=== PATIENT | female | born 1980 | race Caucasian/White ===

== ENCOUNTER 2024-02-29 10:31 | Outpatient (OUT) | payer OTHER, SELFPAY ==
[2024-02-29 11:22] LABS: Estimated Average Glucose 97 mg/dL
[2024-02-29 11:39] LABS: Basophils Percent Auto 0.2 % (0.2-2.0); Eosinophils Absolute Auto 0.2 10^3/uL (0.0-0.7); Eosinophils Percent Auto 2.8 % (0.9-7.0); Hematocrit 41.5 % (36.0-48.0); Hemoglobin 13.6 g/dL (12.0-16.0); Immature Granulocytes Abs Auto 0.01 10^3/uL (0.00-0.03); Immature Granulocytes Pct Auto 0.2 % (0.0-0.5); Lymphocytes Absolute Auto 1.3 10^3/uL (1.2-3.8); Lymphocytes Percent Auto 22.9 % (20.5-60.0); Mean Corpuscular HGB Conc 32.8 g/dL (29.9-35.2); Mean Corpuscular Hemoglobin 28.3 pg (26.7-34.0); Mean Corpuscular Volume 86.5 fL (81.0-99.0); Mean Platelet Volume 11.1 fL (9.5-13.5); Monocytes Absolute Auto 0.4 10^3/uL (0.3-0.8); Monocytes Percent Auto 6.6 % (1.7-12.0); Neutrophils Absolute Auto 3.9 10^3/uL (1.4-6.5); Neutrophils Percent Auto 67.3 % (43.0-75.0); Platelet Count 326 10^3/uL (150-450); Red Cell Distribution Width 13.2 % (11.0-15.0); White Blood Count 5.8 10^3/uL (4.0-11.0)
[2024-02-29 12:00] LABS: Free T4 0.95 ng/dL (0.76-1.46)
[2024-02-29 12:03] LABS: Alanine Aminotransferase 37 U/L (14-59); Albumin Globulin Ratio 1.1; Albumin Level 3.7 g/dL (3.4-5.0); Alkaline Phosphatase 62 U/L (46-116); Anion Gap 11.8; Aspartate Amino Transferase 15 U/L (15-37); BUN Creatinine Ratio 17.4; Bilirubin Total 0.5 mg/dL (0.2-1.0); Calcium 8.9 mg/dL (8.5-10.1); Carbon Dioxide 28.4 mmol/L (21.0-32.0); Chloride 104 mmol/L (98-107); Chol HDL Ratio 2.9; Cholesterol 164 mg/dL (<=200); Estimated GFR (African America >60 (>=60); Estimated GFR (Non-African Ame >60 (>=60); Globulin 3.5 g/dL; Glucose 92 mg/dL (74-106); HDL Cholesterol 57 mg/dL (40-60); LDL Cholesterol Calculated 94.6 mg/dL; Potassium 4.2 mmol/L (3.5-5.1); Sodium 140 mmol/L (136-145); Thyroid Stimulating Hormone 1.156 uIU/mL (0.358-3.740); Total Protein 7.2 g/dL (6.4-8.2); Triglycerides 62 mg/dL (<=150); VLDL CHOLESTEROL 12.4 mg/dL
[2024-02-29 19:31] LABS: Internal Control Within Normal Limits; Occult Blood Positive
== END 2024-02-29 10:32 | disposition home or self-care (01) ==
LOC: LAB 10:36
PROVIDERS: Visit Provider Family Medicine
DX: Z00.00 Encounter for general adult medical examination without abnormal findings (principal)
CPT/HCPCS: 36415; 80053; 80061; 83036; 84439; 84443; 85025; G0328

== ENCOUNTER 2024-03-28 11:03 | Outpatient (OUT) | payer OTHER, SELFPAY ==
--- NOTE | 2024-03-28 11:07 | MM_ITS ---
Patient Name: OSCAR NORTH MR#: [id number] : 1980 Exam Date: 03/28/2024 Ordering Doctor: DR Reynold Pittman . RADIOLOGY REPORT PROCEDURE: MM TOMOSYNTHESIS SCREENING BI COMPARISON: MG MAMM LT UNI W CAD DIG, 02/03/2016. MG STEREO LOC GUIDE BREAST LT, 07/06/2015. MG MAMM JUAN DIAG W CAD DIG, 06/09/2015. INDICATIONS: Screening Calculator Name NCI Breast Cancer Risk Assessment Tool 5 Year Breast Cancer Risk 1.40% Lifetime Breast Cancer Risk 12.50% Personal Breast Cancer No Personal Ovarian Cancer No Treatments None Family Cancers Aunt-paternal with breast cancer at age ~48; Aunt-paternal with breast cancer at age ~38. LOCATION: [facility] BREAST COMPOSITION: The breasts are heterogeneously dense,which may obscure small masses. FINDINGS: DIAGNOSTIC CATEGORY 1--NEGATIVE. RIGHT BREAST: No significant suspicious finding. No significant change has occurred. LEFT BREAST: No significant suspicious finding. No significant change has occurred. RECOMMENDATIONS: ROUTINE MAMMOGRAM AND CLINICAL EVALUATION IN 12 MONTHS. PLEASE NOTE: A NORMAL MAMMOGRAM DOES NOT EXCLUDE THE POSSIBILITY OF BREAST CANCER. A CLINICALLY SUSPICIOUS PALPABLE LUMP SHOULD BE BIOPSIED. Dictated by: Markus Lozada M.D. on 03/28/2024 at 14:16 Approved by: Markus Lozada M.D. on 03/28/2024 at 14:19
== END 2024-03-28 11:04 | disposition home or self-care (01) ==
LOC: MAMMO 11:03
PROVIDERS: PCP Family Medicine; Visit Provider Family Medicine
DX: Z00.00 Encounter for general adult medical examination without abnormal findings (principal); Z80.3 Family history of malignant neoplasm of breast
CPT/HCPCS: 77063; 77067

== ENCOUNTER 2024-03-31 13:00 | Outpatient (OUT) | payer OTHER, SELFPAY ==
--- OUTSIDE RECORDS SUMMARY | 2024-04-01 07:25 | XMS_ITS | CCD ---
Author Organization [facility] Care Team Providers Care Tripper Name Role Phone Lane Meza Primary Care Provider LANE MEZA Primary Care Unavailable PAYAM BAR Attending Unavailable Reynold Pittman Primary Care Physician Pee ACUNA Attending Unavailable Reynold Pittman Referring Unavailable Allergies Allergy Classification Reported Allergen(s) Allergy Type Date of Onset Reaction(s) Facility (12 sources) Cephalexin; Translations: [Cephalexin] Drug Allergy 3 Anaphylaxis, Weal (disorder) [place], [place] (11 sources) Penicillins Propensity to adverse reactions to drug 3 Anaphylaxis, Hives [place], [place] (2 sources) Penicillin; Translations: [penicillin] Drug Allergy Weal (disorder) [facility] (1 source) Cephalexin; Translations: [Keflex] Drug Allergy [facility] Repository Medications Current Medications Medication Drug Class(es) Dates Sig (Normalized) Sig (Original) benzonatate 100 mg oral capsule (1 source) Non-narcotic Antitussive Start: 06-28-2020 End: 07-05-2020 take 1 capsule by mouth three times daily as needed for cough benzonatate (TESSALON PERLES) 100 MG capsule Indications: Suspected COVID-19 virus infection Take 1 capsule by mouth 3 times daily as needed for Cough 21 capsule 0 06/28/2020 07/05/2020 Active calcium chloride 0.0014 meq/ml / potassium chloride 0.004 meq/ml / sodium chloride 0.103 meq/ml / sodium lactate 0.028 meq/ml injectable solution (2 sources) Start: 03-22-2020 End: 03-22-2020 lactated ringers infusion citalopram 20 mg oral tablet (5 sources) Serotonin Reuptake Inhibitor Start: 03-01-2020 take 1 tablet by mouth once daily citalopram (CELEXA) 20 MG tablet Indications: Anxiety Take 1 tablet by mouth daily 30 tablet 3 03/01/2020 Active famotidine 20 mg oral tablet (9 sources) Histamine-2 Receptor Antagonist Start: 03-21-2024 take 1 tablet by mouth once daily Pepcid 20 mg Tab 20 mg = 1 tab(s), Oral, Daily, Refills(s) 0 Start Date: 03/21/24 Status: Ordered Famotidine ([facility] ID PO) Take by mouth 0 Active lisinopril 10 mg oral tablet (11 sources) Angiotensin Converting Enzyme Inhibitor Start: 06-14-2020 take 1 tablet by mouth once daily lisinopril (PRINIVIL;ZESTRIL) 10 MG tablet Indications: Essential hypertension Take 1 tablet by mouth daily 30 tablet 3 06/14/2020 Active Start: 03-01-2020 take 1 tablet by lisa th once daily lisinopril (PRINIVIL;ZESTRIL) 10 MG tablet Indications: Essential hypertension Take 1 tablet by mouth daily 30 tablet 2 03/01/2020 Active 3 ml sodium chloride 9 mg/ml injection (2 sources) Start: 03-22-2020 sodium chloride flush 0.9 % injection 10 mL sucralfate 100 mg/ml oral suspension (6 sources) Aluminum Complex Start: 03-08-2020 take 1 tablet by mouth four times daily sucralfate (CARAFATE) 1 GM/10ML suspension Indications: Gastroesophageal reflux disease, esophagitis presence not specified Take 10 mLs by mouth 4 times daily May substitute 1 gm Carafate tabs if pharmacy staff instructs patient how to make slurry at home. 420 mL 1 03/08/2020 Active 24 hr venlafaxine 37.5 mg extended release oral capsule (4 sources) Serotonin and Norepinephrine Reuptake Inhibitor Start: 03-29-2020 take 1 capsule by mouth once daily venlafaxine (EFFEXOR XR) 37.5 MG extended release capsule Indications: Anxiety Take 1 capsule by mouth daily 30 capsule 3 03/29/2020 Active Completed/Discontinued Medications Medication Drug Class(es) Dates Sig (Normalized) Sig (Original) barium sulfate 98 % suspension 340 mL (1 source) Start: 04-13-2020 End: 04-13-2020 barium sulfate 98 % suspension 340 mL Problems Active Problems Problem Classification Problem Date Documented Da te Episodic/Chronic Abdominal pain (2 sources) Right upper quadrant pain; Translations: [Unspecified abdominal pain] Onset: 3 Episodic Anxiety disorders (1 source) Anxiety 03-05-2024 Chronic Esophageal disorders (10 sources) Gastroesophageal reflux disease; Translations: [Gastroesophageal reflux disease without esophagitis] Onset: 0 03-22-2020 Chronic Essential hypertension (2 sources) Essential hypertension; Translations: [Hypertensive disorder] 03-05-2024 Chronic Gastrointestinal hemorrhage (2 sources) Hemorrhage of rectum and anus; Translations: [Hemorrhage of anus and rectum] Onset: 4 Episodic Immunizations and screening for infectious disease (1 source) Contact with and (suspected) exposure to other viral communicable diseases; Translations: [Suspected COVID-19 virus infection] Episodic Mood disorders (1 source) Depressive disorder 03-05-2024 Chronic Nausea and vomiting (2 sources) Nausea and vomiting; Translations: [Nausea] Onset: 3 Episodic Nonmalignant breast conditions (2 sources) Breast lump; Translations: [Breast lump] Episodic Other gastrointestinal disorders (1 source) Abnormal feces; Translations: [Other fecal abnormalities] Onset: 4 Episodic Other gastrointestinal disorders (1 source) Occult blood in stools 03-21-2024 Episodic Other nutritional; endocrine; and metabolic disorders (1 source) Body mass index 30+ - obesity 03-21-2024 Chronic Other nutritional; endocrine; and metabolic disorders (1 source) Obesity caused by energy imbalance 03-05-2024 Chronic Sexually transmitted infections (not HIV or hepatitis) (11 sources) Human papillomavirus deoxyribonucleic acid test positive, high risk on cervical specimen; Translations: [Cervical high risk human papillomavirus (HPV) DNA test positive] Onset: 3 04-03-2013 Substance-related disorders (1 source) Smoker 03-21-2024 Chronic Comment on above: Added secondary to d ocumentation in Social History. Unclassified (2 sources) Patient encounter status; Translations: [Well woman exam with routine gynecological exam] Past or Other Problems Problem Classification Problem Date Documented Da te Episodic/Chronic Other screening for suspected conditions (not mental disorders or infectious disease) (11 sources) Abnormal cytology findings; Translations: [ASCUS (atypical squamous cells of undetermined significance) on Pap smear] Onset: 04-03-2013 04-03-2013 Episodic Results Test Name Value Interpretation Reference Range Facil ity Ambulatory Visit Summaryon 0 03-21-2024 Ambulatory Visit Summary Ambulatory Visit Summary [facility] :1980 Visit Date:03/21/2024 Ambulatory Visit Instructions Your Diagnosis Positive fecal occult blood test Your Care Team Attending Physician - Pee ACUNA MD Primary Care Physician - Zain STUBBS, Reynold Referring Physician - Reynold Pittman MD This Is Your Medications List famotidine (Pepcid 20 mg Tab) Procedures Performed Cone biopsy, EGD - esophagogastroduodenos copy, Lumpectomy of left breast, Tonsillectomy. Discharge Vitals Heart Rate (Peripheral) 87 Respiratory Rate 16 Blood Pressure 131/91 Height 152.4 cm Height 60 in Weight 90.7 kg Weight 199.54 lb BMI 39.05 Medications What How Much When Instructions Unchanged famotidine (Pepcid 20 mg Tab) 1 Tablets By Mouth Every day Allergies Keflex (Hives) penicillin (Hives) Problems Ongoing - Any problem that you are currently receiving treatment for. Anxiety BMI 39.0-39.9,adult Depression Hypertension Obesity due to excess calories Positive fecal occult blood test Smoker Patient Survey You may receive a survey via text or e-mail asking about your office visit. Please share your experience with us by completing your survey. We appreciate your feedback and thank you for choosing us for your care. Normal [facility] Basic Metabolic Profon 10-24 Anion gap [Moles/Vol] 9 mmol/L Normal - [place] Comment on above: Performed By: #### B MP, LIP, HCG, LIVP, CDP #### [facility] [address] [place] [address] [employer]ocket [employer] Operator: Raymond Reyna MD BUN/CRE Ratio 19 Normal - [facility] Comment on above: Performed By: #### B MP, LIP, HCG, LIVP, CDP #### [facility] [address] [place] [address] [employer] Operator: Raymond Reyna MD Calcium [Mass/Vol] 9.1 mg/dL Normal 8.6-10.4 [place] Comment on above: Performed By: #### B MP, LIP, HCG, LIVP, CDP #### [facility] [address] [place], [place] [id number] [employer] Operator: Raymond Reyna MD Chloride [Moles/Vol] 102 mmol/L Normal 98-107 [facility] Comment on above: Performed By: #### B MP, LIP, HCG, LIVP, CDP #### [facility] [address] [place], [place] [id number] [employer] Operator: Raymond Reyna MD CO2 [Moles/Vol] 24 mmol/L Normal 20-31 [facility] Comment on above: Performed By: #### B MP, LIP, HCG, LIVP, CDP #### [facility] [address] [place] [address] [employer] Operator: Raymond Reyna MD Creatinine [Mass/Vol] 0.93 mg/dL High 0.50-0.90 [place] Comment on above: Performed By: #### B MP, LIP, HCG, LIVP, CDP #### [facility] [address] [place] [id number] [employer] Operator: Raymond Reyna MD GFR/1.73 sq M.predicted among non-blacks MDRD (S/P/Bld) [Vol rate/Area] mL/min/{1.73_m2} Normal >60 [place] Comment on above: Result Comment: These results are not intended for use in patients <18 years of age. eGFR results are calculated without a race factor using the 2020 CKD-EPI equation. Careful clinical correlation is recommended, particularly when comparing to results calculated using previous equations. The CKD-EPI equation is less accurate in patients with extremes of muscle mass, extra-renal metabolism of creatine, excessive creatine ingestion, or following therapy that affects renal tubular secretion. Performed By: #### B MP, LIP, HCG, LIVP, CDP #### [facility] [address] [place], [place] [id number] [employer] Operator: Raymond Reyna MD Glucose [Mass/Vol] 106 mg/dL High 70-99 [place] Comment on above: Performed By: #### B MP, LIP, HCG, LIVP, CDP #### [facility] [address] [place], [place] [id number] [employer] Operator: Raymond Reyna MD Potassium [Moles/Vol] 3.9 mmol/L Normal 3.7-5.3 [place] Comment on above: Performed By: #### B MP, LIP, HCG, LIVP, CDP #### [facility] [address] [place] [address] [employer] Operator: Raymond Reyna MD Sodium [Moles/Vol] 135 mmol/L Normal 135-144 [place] Comment on above: Performed By: #### B MP, LIP, HCG, LIVP, CDP #### [facility] [address] [place] [address] [employer] Operator: Raymond Reyna MD Urea nitrogen [Mass/Vol] 18 mg/dL Normal 6-20 [place] Comment on above: Performed By: #### B MP, LIP, HCG, LIVP, CDP #### [facility] [address] [place] [address] [employer] Operator: Raymond Reyna MD CBC with Diffon 10-24-2022 Abs. Basophil 0.10 k/uL Normal 0.0-0.2 [facility] Comment on above: Performed By: #### B MP, LIP, HCG, LIVP, CDP #### [facility] [address] [place] [address] [employer] Operator: Raymond Reyna MD Abs.Neutrophil (Seg) 6.90 k/uL Normal 2.5-7.0 [facility] Comment on above: Performed By: #### B MP, LIP, HCG, LIVP, CDP #### [facility] [address] [place] [address] [employer] Operator: Raymond Reyna MD Auto Diff Performed YES Normal [place] Comment on above: Performed By: #### B MP, LIP, HCG, LIVP, CDP #### [facility] [address] [place], [place] [id number] [employer] Operator: Raymond Reyna MD Basophils/100 WBC (Bld) 1 % Normal 0-2 [place] Comment on above: Performed By: #### B MP, LIP, HCG, LIVP, CDP #### [facility] [address] [place] [address] [employer] Operator: Raymond Reyna MD Eosinophils (Bld) [#/Vol] 0.30 10*3/uL Normal 0.0-0.4 [place] Comment on above: Performed By: #### B MP, LIP, HCG, LIVP, CDP #### [facility] [address] [place] [address] [employer] Operator: Raymond Reyna MD Eosinophils/100 WBC (Bld) 3 % Normal 0-5 [place] Comment on above: Performed By: #### B MP, LIP, HCG, LIVP, CDP #### [facility] [address] [place] [address] [employer] Operator: Raymond Reyna MD Erythrocyte distribution width (RBC) [Ratio] 13.0 % Normal 12.1-15.2 [place] Comment on above: Performed By: #### B MP, LIP, HCG, LIVP, CDP #### [facility] [address] [place] [address] [employer] Operator: Raymond Reyna MD Hematocrit (Bld) [Volume fraction] 39.6 % Normal 36-46 [place] Comment on above: Performed By: #### B MP, LIP, HCG, LIVP, CDP #### [facility] [address] [place] [address] [employer] Operator: Raymond Reyna MD Hemoglobin (Bld) [Mass/Vol] 13.4 g/dL Normal 12.0-16.0 [place] Comment on above: Performed By: #### B MP, LIP, HCG, LIVP, CDP #### [facility] [address] [place] [address] [employer] Operator: Raymond Reyna MD Lymphocytes (Bld) [#/Vol] 2.00 10*3/uL Normal 1.0-4.8 [place] Comment on above: Performed By: #### B MP, LIP, HCG, LIVP, CDP #### [facility] [address] [place] [address] [employer] Operator: Raymond Reyna MD Lymphocytes/100 WBC (Bld) 21 % Normal 15-40 [place] Comment on above: Performed By: #### B MP, LIP, HCG, LIVP, CDP #### [facility] [address] [place] [id number] [employer] Operator: Raymond Reyna MD MCH (RBC) [Entitic mass] 28.9 pg Normal 26-34 [place] Comment on above: Performed By: #### B MP, LIP, HCG, LIVP, CDP #### [facility] [address] [place] [id number] [employer] Operator: Raymond Reyna MD MCHC (RBC) [Mass/Vol] 33.8 g/dL Normal 31-37 [place] Comment on above: Performed By: #### B MP, LIP, HCG, LIVP, CDP #### [facility] [address] [place] [address] [employer] Operator: Raymond Reyna MD MCV (RBC) [Entitic vol] 85.5 fL Normal 80-100 [place] Comment on above: Performed By: #### B MP, LIP, HCG, LIVP, CDP #### [facility] [address] [place], [place] [id number] [employer] Operator: Raymond Reyna MD Monocytes (Bld) [#/Vol] 0.50 10*3/uL Normal 0.0-1.0 [place] Comment on above: Performed By: #### B MP, LIP, HCG, LIVP, CDP #### [facility] [address] [place] [address] (408) [employer] Operator: Raymond Reyna MD Monocytes/100 WBC (Bld) 5 % Normal 4-8 [place] Comment on above: Performed By: #### B MP, LIP, HCG, LIVP, CDP #### [facility] [address] [place] [address] [employer] Operator: Raymond Reyna MD Neutrophil (Seg) 70 % Normal 47-75 [facility] Comment on above: Performed By: #### B MP, LIP, HCG, LIVP, CDP #### [facility] [address] [place] [address] [employer] Operator: Raymond Reyna MD Platelets (Bld) [#/Vol] 319 10*3/uL Normal 140-450 [place] Comment on above: Performed By: #### B MP, LIP, HCG, LIVP, CDP #### [facility] [address] [place] [address] (389) [employer] Operator: Raymond Reyna MD RBC (Bld) [#/Vol] 4.63 10*6/uL Normal 4.0-5.2 [place] Comment on above: Performed By: #### B MP, LIP, HCG, LIVP, CDP #### [facility] [address] [place] [address] (968) [employer] Operator: Raymond Reyna MD WBC (Bld) [#/Vol] 9.8 10*3/uL Normal 3.5-11.0 [place] Comment on above: Performed By: #### B MP, LIP, HCG, LIVP, CDP #### [facility] [address] [place], [place] [id number] [employer] Operator: Raymond Reyna MD HCG Screen, Bloodon 10-25-19 23 HCG Screen, Blood Negative Normal [facility] Comment on above: Result Comment: Spec imens with hCG levels near the threshold of the test (25 mIU/mL) may give a negative or indeterminate result. In such cases, another test should be performed with a new specimen in 48-72 hours. If early is suspected clinically in this setting, correlation with quantitative serum b-hCG level is suggested. [facility] has confirmed the use of plasma for this test. This has not been cleared or approved by the U.S. Food and Drug Administration. The FDA has determined that such clearance is not necessary. Performed By: #### B MP, LIP, HCG, LIVP, CDP #### [facility] [address] [place], [place] [id number] [employer] Operator: Raymond Reyna MD Lipaseon 10-24-2022 Lipase [Catalytic activity/Vol] 36 U/L Normal 13-60 [place] Comment on above: Performed By: #### B MP, LIP, HCG, LIVP, CDP #### [facility] [address] [place] [address] [employer] Operator: Raymond Reyna MD Liver Profileon 0 Albumin [Mass/Vol] 4.2 g/dL Normal 3.5-5.2 [place] Comment on above: Performed By: #### B MP, LIP, HCG, LIVP, CDP #### [facility] [address] [place] [address] [employer] Operator: Raymond Reyna MD Alkaline Phos 77 U/L Normal 35-104 [facility] Comment on above: Performed By: #### B MP, LIP, HCG, LIVP, CDP #### [facility] [address] [place] [address] [employer] Operator: Raymond Reyna MD ALT [Catalytic activity/Vol] 18 U/L Normal 5-33 [place] Comment on above: Performed By: #### B MP, LIP, HCG, LIVP, CDP #### [facility] [address] [place] [address] [employer] Operator: Raymond Reyna MD AST [Catalytic activity/Vol] 16 U/L Normal <32 [place] Comment on above: Performed By: #### B MP, LIP, HCG, LIVP, CDP #### [facility] [address] [place] [address] [employer] Operator: Raymond Reyna MD Bilirubin [Mass/Vol] 0.3 mg/dL Normal 0.3-1.2 [facility] Comment on above: Performed By: #### B MP, LIP, HCG, LIVP, CDP #### [facility] [address] [place] [address] [employer] Operator: Raymond Reyna MD Bilirubin, Indirect Can not be calculated Normal 0.0-1 .0 [place] Comment on above: Performed By: #### B MP, LIP, HCG, LIVP, CDP #### [facility] [address] [place] [address] [employer] Operator: Raymond Reyna MD Bilirubin.indirect [Mass/Vol] mg/dL Normal <0.3 [place] Comment on above: Performed By: #### B MP, LIP, HCG, LIVP, CDP #### [facility] [address] [place] [address] [employer] Operator: Raymond Reyna MD Protein [Mass/Vol] 7.2 g/dL Normal 6.4-8.3 [place] Comment on above: Performed By: #### B MP, LIP, HCG, LIVP, CDP #### [facility] [address] [place] [address] [employer] Operator: Raymond Reyna MD Urinalysis, Routineon 2022 Bilirubin, SemiQt,Ur Negative Normal NEG [facility] Comment on above: Performed By: #### U A #### [facility] [address] [facility] [place] [id number] [employer] Operator: Raymond Reyna MD Blood, Urine Negative Normal NEG [facility] Comment on above: Performed By: #### U A #### [facility] [address] [facility] [place] [id number] [employer] Operator: Raymond Reyna MD Clarity (U) Clear Normal CLEAR [place] Comment on above: Performed By: #### U A #### [facility] [address] [facility] [place] [id number] [employer] Operator: Raymond Reyna MD Color (U) Yellow Normal YEL [place] Comment on above: Performed By: #### U A #### [facility] [address] [facility] [place] [id number] [employer] Operator: Raymond Reyna MD Comment Normal [place] Comment on above: Performed By: #### U A #### [facility] [address] [facility] [place] [id number] [employer] Operator: Raymond Reyna MD Glucose Ql (U) Negative Normal NEG [facility] Comment on above: Performed By: #### U A #### [facility] [address] [facility] [place] [id number] [employer] Operator: Raymond Reyna MD Ketones Ql (U) Negative Normal NEG [facility] Comment on above: Performed By: #### U A #### [facility] [address] [facility] [place] [id number] [employer] Operator: Raymond Reyna MD Leukocyte esterase Test strip Ql (U) Negative Normal NEG [place] Comment on above: Performed By: #### U A #### [facility] [address] [place], [place] [id number] [employer] Operator: Raymond Reyna MD Nitrite,Ur Negative Normal NEG [place] Comment on above: Performed By: #### U A #### [facility] [address] [place], [place] [id number] [employer] Operator: Raymond Reyna MD PH,Ur 5.0 Normal 5.0-8.0 [place] Comment on above: Performed By: #### U A #### [facility] [address] [place], [place] [id number] [employer] Operator: Raymond Reyna MD Protein Ql (U) Negative Normal NEG [facility] Comment on above: Performed By: #### U A #### [facility] [address] [place], [place] [id number] Rocket Assembly Operator: Raymond Reyna MD Spec. [place],Ur 1.010 Normal 1.005-1.030 [facility] Comment on above: Performed By: #### U A #### [facility] [address] [place], [place] [id number] Rocket Assembly Operator: Raymond Reyna MD Urobilinogen,Ur Normal Normal NORM [facility] Comment on above: Performed By: #### U A #### [facility] [address] [place], [place] [id number] Rocket Assembly Operator: Raymond Reyna MD COVID-19on 04-13-2020 SARS-CoV-2 [place], [place] SARS-CoV-2, PCR [place], [place] SARS-CoV-2, Rapid Not Detected Not Detected [place], [place] Comment on above: Rapid NAAT: The specimen is NEGATIVE for SARS-CoV-2, the novel coronavirus associated with COVID-19. The ID NOW COVID-19 assay is designed to detect the virus that causes COVID-19 in patients with signs and symptoms of infection who are suspected of COVID-19. An individual without symptoms of COVID-19 and who is not shedding SARS-CoV-2 virus would expect to have a negative (not detected) result in this assay. Negative results should be treated as presumptive and, if inconsistent with clinical signs and symptoms or necessary for patient management, should be tested with an alternative molecular assay. Negative results do not preclude SARS-CoV-2 infection and should not be used as the sole basis for patient management decisions. Fact sheet for Healthcare Providers: https://www.fda.gov/media/851445/download Fact sheet for Patients: https://www.fda.gov/media/314893/download Methodology: Isothermal Nucleic Acid Amplification Source .THROAT [place], [place] FL UGIon 04-13-2020 Gastroesophageal reflux. [place], [place] EXAMINATION: [place] UGI HISTORY: Chronic reflux and vomiting. Evaluate for delayed gastric emptying. COMPARISON: Gallbladder ultrasound earlier today was normal. FLUOROSCOPY TIME: Fluoro time measures 1.5 minutes and 12 spot images and 6 overhead films were obtained. TECHNIQUE: Air contrast upper GI. FINDINGS: No delay in gastric emptying. Gastroesophageal reflux was identified into the upper third of the thoracic esophagus. No hiatal hernia. No obstruction to swallowing. Stomach, duodenum, and proximal small bowel loops are normal. [place], [place] Imer, pn Incoming Radiant Results From [facility] - 04/13/2020 2:13 PM EDT EXAMINATION: [place] UGI HISTORY: Chronic reflux and vomiting. Evaluate for delayed gastric emptying. COMPARISON: Gallbladder ultrasound earlier today was normal. FLUOROSCOPY TIME: Fluoro time measures 1.5 minutes and 12 spot images and 6 overhead films were obtained. TECHNIQUE: Air contrast upper GI. FINDINGS: No delay in gastric emptying. Gastroesophageal reflux was identified into the upper third of the thoracic esophagus. No hiatal hernia. No obstruction to swallowing. Stomach, duodenum, and proximal small bowel loops are normal. IMPRESSION: Gastroesophageal reflux. [place], [place] US GALLBLADDER RUQon 020 Normal ultrasound of the right upper quadrant [place], [place] Ultrasound of the right upper quadrant. HISTORY: Reason for exam:->Postprandial abdominal pain The pancreas appears normal. The liver is normal in size. No focal masses or biliary dilatation is noted. Color-flow is noted in the portal and hepatic veins. The gallbladder appears normal. No stones or sludge is identified. Common bile duct is normal measuring 3 mm. Right kidney measures 9.9 x 4 x 4.6 cm. Color-flow is noted. No solid renal cortical masses or hydronephrosis is noted. No fluid is noted in the right upper quadrant. [place], [place] I[place], Mhpn Incoming Radiant Results From [facility] - 04/13/2020 11:55 AM EDT Ultrasound of the right upper quadrant. HISTORY: Reason for exam:->Postprandial abdominal pain The pancreas appears normal. The liver is normal in size. No focal masses or biliary dilatation is noted. Color-flow is noted in the portal and hepatic veins. The gallbladder appears normal. No stones or sludge is identified. Common bile duct is normal measuring 3 mm. Right kidney measures 9.9 x 4 x 4.6 cm. Color-flow is noted. No solid renal cortical masses or hydronephrosis is noted. No fluid is noted in the right upper quadrant. IMPRESSION: Normal ultrasound of the right upper quadrant [place], [place] COVID-19on 03-22-2020 SARS-CoV-2 [place] SARS-CoV-2, PCR [place] SARS-CoV-2, Rapid Not Detected Not Detected [place], [place] Comment on above: Rapid NAAT: The specimen is NEGATIVE for SARS-CoV-2, the novel coronavirus associated with COVID-19. Negative results should be treated as presumptive and, if inconsistent with clinical signs and symptoms or necessary for patient management, should be tested with an alternative molecular assay. Negative results do not preclude SARS-CoV-2 infection and should not be used as the sole basis for patient management decisions. Fact sheet for Healthcare Providers: https://www.fda.gov/media/748849/download Fact sheet for Patients: https://www.fda.gov/media/485186/download Methodology: Isothermal Nucleic Acid Amplification Source .THROAT [place], [place] Urine pregnancyon 03-22-2020 Beta HCG ( test) Ql (U) Negative NEGATIVE [place], [place] Otheron 03-04-2020 BI-RADS 2 - Benign, no evidence of malignancy. Normal interval followup is recommended in 12 months. OVERALL ASSESSMENT- BENIGN A letter of notification will be sent to the patient regarding the results. The findings were discussed with the patient. She can return to screening mammography. [place] EXAM: US BREAST LIMITED LEFT, ESTRELLA DIGITAL DIAGNOSTIC W OR WO CAD BILATERAL HISTORY: N63.0. Palpable abnormality improving medial right breast. COMPARISON: Prior mammogram left breast 02/03/2016, 07/06/2015. TECHNIQUE: Focused left breast ultrasound, bilateral digital diagnostic mammogram with CAD. FINDINGS: Triangular skin marker was placed over the medial right breast at the site of a resolving abnormality which showed only fatty tissue on the mammogram and no area of concern on ultrasound other than a likely small area of fat measuring under 1 cm. Otherwise the breasts show heterogeneously dense fibroglandular tissue which could obscure small masses. No change. [place], [place] Imer, Mhpn Incoming Radiant Results From [facility] - 03/04/2020 4:10 PM EDT EXAM: US BREAST LIMITED LEFT, ESTRELLA DIGITAL DIAGNOSTIC W OR WO CAD BILATERAL HISTORY: N63.0. Palpable abnormality improving medial right breast. COMPARISON: Prior mammogram left breast 02/03/2016, 07/06/2015. TECHNIQUE: Focused left breast ultrasound, bilateral digital diagnostic mammogram with CAD. FINDINGS: Triangular skin marker was placed over the medial right breast at the site of a resolving abnormality which showed only fatty tissue on the mammogram and no area of concern on ultrasound other than a likely small area of fat measuring under 1 cm. Otherwise the breasts show heterogeneously dense fibroglandular tissue which could obscure small masses. No change. IMPRESSION: BI-RADS 2 - Benign, no evidence of malignancy. Normal interval followup is recommended in 12 months. OVERALL ASSESSMENT- BENIGN A letter of notification will be sent to the patient regarding the results. The findings were discussed with the patient. She can return to screening mammography. [place] Basic Metabolic Panelon 02-17 Anion gap [Moles/Vol] 13 mmol/L 9 - 17 mmol/L [place] Bun/Cre Ratio 14 [place] Calcium [Mass/Vol] 9.9 mg/dL 8.6 - 10. 4 mg/dL [place] Chloride [Moles/Vol] 103 mmol/L 98 - 107 mmol/L [place] CO2 [Moles/Vol] 24 mmol/L 20 - 31 mmol/L [place] Creatinine [Mass/Vol] 1.18 mg/dL High 0.5 - 0.9 mg/dL [place] GFR >60 >60 mL/min [place], [place] GFR Non- 51 mL/min Low >60 [place] GFR/1.73 sq M predicted among non-blacks MDRD (S/P/Bld) [Vol rate/Area] [place], [place] Comment on above: Average GFR for 30-3 9 years old: 107 mL/min/1.73sq m Chronic Kidney Disease: <60 mL/min/1.73sq m Kidney failure: <15 mL/min/1.73sq m eGFR calculated using average adult body mass. Additional eGFR calculator available at: http://www.EZbuildingEHS/multiple_crcl_2012.htm GFR/1.73 sq M predicted among non-blacks MDRD (S/P/Bld) [Vol rate/Area] NOT REPORTED [place], [place] Glucose [Mass/Vol] 98 mg/dL 70 - 99 mg/dL [place] Interpretation and review of laboratory results Abnormal [place] Potassium [Moles/Vol] 4.1 mmol/L 3.7 - 5.3 mmol/L [place] Sodium [Moles/Vol] 140 mmol/L 135 - 144 mmol/L [place], [place] Urea nitrogen [Mass/Vol] 17 mg/dL 6 - 20 mg/dL [place] CBC Auto Differentialon 02-17 Basophils (Bld) [#/Vol] 0.00 10*3/uL [place] Basophils/100 WBC (Bld) 0 % 0 - 2 % [place] Differential Type YES [place] Eosinophils (Bld) [#/Vol] 0.20 10*3/uL [place] Eosinophils/100 WBC (Bld) 2 % 0 - 5 % [place] Erythrocyte distribution width (RBC) [Ratio] 12.9 % 12.1 - 15.2 % [place] Hematocrit (Bld) [Volume fraction] 40.0 % 36 - 46 % [place] Hemoglobin (Bld) [Mass/Vol] 13.8 g/dL 12 - 16 g/dL [place] Lymphocytes (Bld) [#/Vol] 2.20 10*3/uL [place] Lymphocytes/100 WBC (Bld) 27 % 15 - 40 % [place] MCH (RBC) [Entitic mass] 30.2 pg 26 - 34 pg [place] MCHC (RBC) [Mass/Vol] 34.6 g/dL 31 - 37 g/dL [place] MCV (RBC) [Entitic vol] 87.2 fL 80 - 100 fL [place] Monocytes (Bld) [#/Vol] 0.60 10*3/uL [place] Monocytes/100 WBC (Bld) 8 % 4 - 8 % [place] Platelet mean volume (Bld) [Entitic vol] NOT REPORTED 6 - 12 fL [place], [place] Platelets (Bld) [#/Vol] NOT REPORTED [place] Platelets (Bld) [#/Vol] 322 10*3/uL [place] RBC (Bld) [#/Vol] 4.59 10*6/uL 4 - 5.2 m/uL [place] RBC morphology finding Nom (Bld) NOT REPORTED [place] Segmented neutrophils/100 WBC (Bld) 63 % 47 - 75 % [place] Segs Absolute 5.10 [place] WBC (Bld) [#/Vol] 8.1 10*3/uL [place] WBC (Bld) [#/Vol] NOT REPORTED per 100 WBC [place], [place] WBC Morphology NOT REPORTED [place], [place] Otheron 03-01-2020 Immature granulocytes (Bld) [#/Vol] NOT REPORTED 0 % [place] TSHon 03-01-2020 TSH Qn 1.19 m[IU]/L [place], [place] Vital Signs Date Time Vital Sign Value Performing Clinician Wendi kelley 03-21-2024 08:49-0400 Blood Pressure Location [facility] 03-21-2024 08:49-0400 Diastolic blood pressure 91 mm[Hg] [facility] 03-21-2024 08:49-0400 Heart rate 87 /min [facility] 03-21-2024 08:49-0400 Respiratory rate 16 /min [facility] 03-21-2024 08:49-0400 Systolic blood pressure 131 mm[Hg] [facility] 03-22-2020 10:58-0400 BP Diastolic 85 mm[Hg] [facility] [place] 03-22-2020 10:58-0400 BP Systolic 139 mm[Hg] [facility] [place] , [place] 03-22-2020 10:58-0400 Pulse (Heart Rate) 78 /min [facility] [place] 03-22-2020 10:58-0400 Pulse Oximetry 100 % [facility] [place] 03-22-2020 10:58-0400 Respiratory Rate 18 /min [facility] [place] 03-22-2020 10:26-0400 Body Temperature 97.7 [degF] [facility] [place] 03-22-2020 07:33-0400 BMI (Body Mass Index) 37.11 kg/m2 Cuategreg Mallory [facility], [place] 03-22-2020 07:33-0400 Body weight 86.18 kg [facility] [place] 03-22-2020 07:33-0400 Height 152.4 cm [facility] [place] , [place] Encounters Encounter Date Encounter Type Care Provider Facility Start: 03-21-2024 End: 03-21-2024 ambulatory Pee ACUNA Facility:DAV Reeder Start: 03-21-2024 End: 03-21-2024 Patient encounter procedure Pee ACUNA [facility] [place] Start: 03-18-2024 ambulatory Pee ACUNA Facility:Jennifer Reeder Start: 03-03-2024 ambulatory Pee ACUNA Facility:Jennifer Daniel Start: 10-24-2022 End: 10-24-2022 Emergency department patient visit [facility] Start: 10-25-2020 End: 10-25-2020 Subsequent hospital visit by physician [facility] Ryan Pat Screening Schedule [facility] PRE ADMIT Comment on above: Arrived Start: 06-28-2020 End: 06-28-2020 Subsequent hospital visit by physician Lane delilah [facility] Laboratory Comment on above: Suspected COVID-19 v irus infection Start: 05-05-2020 End: 05-05-2020 Subsequent hospital visit by physician [facility] Laboratory Comment on above: Well woman exam with routine gynecological exam; Screening for HPV (human papillomavirus) Start: 04-13-2020 End: 04-15-2020 Subsequent hospital visit by physician Hernesto Radiologist [facility] Radiology Comment on above: Non-intractable vomi ting with nausea, unspecified vomiting type RUQ abdominal pain Start: 04-13-2020 End: 04-13-2020 Subsequent hospital visit by physician [facility] Ryan Pat Screening Schedule [facility] PRE ADMIT Comment on above: Arrived Start: 03-22-2020 End: 03-22-2020 Subsequent hospital visit by physician Cuate Mallory Work Phone: [facility] Start: 03-22-2020 End: 03-22-2020 Subsequent hospital visit by physician [facility] Ryan Pat Screening Schedule [facility] PRE ADMIT Comment on above: Arrived Start: 03-04-2020 End: 03-06-2020 Subsequent hospital visit by physician [facility] Radiologist [facility] Mammography Comment on above: Breast lump Start: 03-01-2020 End: 03-01-2020 Subsequent hospital visit by physician Lane Meza [facility] Laboratory Comment on above: Gastroesophageal ref lux disease without esophagitis; Essential hypertension Procedures Date Procedure Procedure Detail Performing Clinician Start: 04-13-2020 Radex gi tract upper w/wo delayed images w/o kub Cuate P Kuivinen Work Phone: Start: 04-13-2020 COVID-19 Meng Archer Work Phone: Start: 04-13-2020 Us abdominal real time w/image limited Cuate P Kuivinen Work Phone: Start: 03-22-2020 Urine test visual color cmprsn meths Cuate P Kuivinen Work Phone: Start: 03-22-2020 COVID-19 Meng Archer Work Phone: Start: 03-04-2020 Us breast uni real time with image limited Lane Meza Work Phone: Start: 03-04-2020 Diagnostic mammography computer-aided detcj bi Lane Meza Work Phone: Start: 03-01-2020 Assay of thyroid stimulating hormone tsh Lane Meza Work Phone: Start: 03-01-2020 Basic metabolic panel calcium total Kimber Meza Work Phone: Start: 03-01-2020 Blood count complete auto&auto difrntl wbc Lane Meza Work Phone: Cone biopsy Pee ACUNA Esophagogastroduodenoscopy M laly ACUNA Lumpectomy of left breast Mi shahramsusanne ARMAND Tonsillectomy Pee ACUNA Plan of Treatment Date Care Activity Detail Author Start: 05-05-2025 Screening for malign ant neoplasm of cervix Cervical cancer screen [facility], [place] Start: 05-11-2021 End: 05-11-2021 Office Visit 05/11/2021 Office Visit Obstetrics and Gynecology Tania Mcdaniels APRN - CNMely [address] [place] [address] [facility] WORSHIP DIRECTOR Start: 03-01-2021 Creatinine measurement Creatinine mo [place]itoring [place], [place] Start: 03-01-2021 DTaP/Tdap/Td vaccine (1 - Tdap) DTaP/Tdap/Td vaccine (1 - Tdap) [place] Comment on above: Postponed from 02/11 (Patient Refused) Start: 03-01-2021 HIV screening HIV screen [place], [place] Comment on above: Postponed from 02/11 (Patient Refused) Start: 03-01-2021 Potassium monitoring Potassium monit oring [place], [place] Start: 06-28-2020 End: 06-28-2020 Office Visit [facility] Start: 05-05-2020 End: 05-05-2020 Office Visit 05/05/2020 Office Visit Obstetrics and Gynecology Tania Mcdaniels APRN - CNMely [address] [place] [address] [facility] WORSHIP DIRECTOR Start: 04-20-2020 Influenza vaccination Flu vaccine (# 1) [place], [place] Start: 03-29-2020 End: 03-29-2020 Office Visit 03/29/2020 Office [address] Medicine Lane Meza MD [address] [place] [phone] [facility] Start: 03-22-2020 Varicella vaccine (1 of 2 - 2-dose childhood series) Varicella vaccine (1 of 2 - 2-dose childhood series) [place] Comment on above: Postponed from 02/11 (Not Indicated) Start: 03-08-2020 End: 03-08-2020 Office Visit 03/08/2020 Office Visit General Surgery Cuate Mallory MD [address] [place] [address] [facility] [employer] [place] Start: 03-04-2020 End: 03-04-2020 Appointment 03/04/2020 Appointment Radiology [facility] Ultrasound Start: 11-07-2016 Screening for malign ant neoplasm of cervix Cervical cancer screen [place], [place] Start: 1983 Varicella vaccine (1 of 2 - 2-dose childhood series) Varicella vaccine (1 of 2 - 2-dose childhood series) [place], [place] Start: 1982 Hepatitis C screening Hepatitis C sc reen [facility] Phone: End: 10-25-2020 COVID-19 COVID-19 Lab Routine Once for 1 Occurrences starting 10/25/2020 until 10/25/2020 [facility] Phone: Comment on above: Once for 1 Occurrenc es starting 10/25/2020 until 10/25/2020 COVID-19 COVID-19 Lab Rou fredi 10/25/2020 10:35 AM [facility] Phone: End: 06-28-2020 COVID-19 Ambulatory COVID-19 Ambulatory Lab Routine Suspected COVID-19 virus infection 1 Occurrences starting 06/28/2020 until 06/28/2020 [place] Comment on above: 1 Occurrences starti ng 06/28/2020 until 06/28/2020 COVID-19 Ambulatory COVID-19 Amb ulatory Lab Routine Suspected COVID-19 virus infection 06/28/2020 11:14 AM EST [place], [place] End: 05-05-2020 Cytopathology procedure, preparation of smear, genital source PAP SMEAR Lab Routine Well woman exam with routine gynecological exam Screening for HPV (human papillomavirus) 1 Occurrences starting 05/05/2020 until 05/05/2020 [place] Comment on above: 1 Occurrences starti ng 05/05/2020 until 05/05/2020 H. PYLORI DETECTION [place] Comment on above: Release Upon Orderin g for 1 Occurrences starting 03/22/2020 Oxygen therapy Initiate Oxygen Therapy Protocol Respiratory Care Routine Daily until discontinued starting 03/22/2020 [place] Comment on above: Daily until disconti nued starting 03/22/2020 Surgical Pathology Surgical Path ology Lab Routine Release Upon Ordering for 1 Occurrences starting 03/22/2020 [place] Comment on above: Release Upon Orderin g for 1 Occurrences starting 03/22/2020 Payers Date Payer Category Payer Unknown [id number] 2024 Private Health Insurance [id number] 2016 Private Health Insurance AEGINA LOONA [id number] 2016-Present [phone] [address] [place] [address] [id number] 2016 Private Health Insurance AEGINA LOONA [id number] 2016-Present [phone] [address] [place] [address] [id number] 2014 Unknown [id number] 1982 Unknown [id number] 1982 Unknown [id number] Social History Date Type Detail Facility Start: 03-01-2020 End: 10-25-2020 Tobacco smoking status NHIS Former smoker [facility] [place] Start: 03-01-1995 End: 03-01-2017 History of tobacco use Current smoker [facility] [place] Start: 03-01-1995 End: 03-01-2017 History of tobacco use [facility] Start: 03-01-2020 End: 10-25-2020 Cigarettes smoked current (pack per day) - [facility]orted [facility] Start: 03-01-2020 End: 10-25-2020 Tobacco use and exposure Never used [facility] Start: 03-01-2020 End: 10-25-2020 Alcohol intake Current drinker of alcohol (finding) [place] Start: 04-16-2013 Alcohol Comment once a month Jagruti Vyas [place] Sex Assigned At Not on file [place] Exposure to SARS-CoV -2 (event) Not sure [place] Sex Assigned At Female [facility] Functional Status Date Assessment Result Facility 03-21-2024 Functional Status N/A [facility] [place] Clinical Note 03-21-2024 Note Date & Type Note Facility 03-21-2024 Note General Surgery Offi ce/Clinic Note Chief Complaint consultation for positive occult stool HPI Staff 44 year old female presents on consultation from Dr. Pittman for positive occult stool. Patient reports bright red rectal bleeding with nearly every bowel movement for many years. Reports blood in toiler water and on toilet tissue. Reports intermittent rectal pain with bowel movements. She is unable to determine if pain in internal or external. Denies abdominal pain, nausea or vomiting. No unexplained weight loss. Never had colonoscopy in the past. No known family history of colon cancer. History of Present Illness 44 yo female with h/o htn, anxiety/depression, referred for positive fecal occult blood test; patient reports long h/o intermittent rectal bleeding with bms, red blood in toilet bowel, on outside of stool and with wiping; occasional soreness, no hemorrhoid prolapse; no anemia;, no abd complaints; no abd operations or previous colonoscopy; no asa or NSAID use; no tobacco use; no fmhx of GI malignancy or IBD. Review of Systems PHQ Score Initial Depression Screen Score: 0 SCORE ROS - Provider Constitutional: no fever, no sweats, no weight loss. Eyes: no glasses, no blurred vision, no visual loss. ENMT: no dentures, no hoarseness, no swallowing difficulties, no hearing loss, no ear infection(s), no nose bleeds. Cardiovascular: normal blood pressure, no chest pain, regular heartbeat, no heart murmur. Respiratory: no shortness of breath, no cough, no asthma, no wheezing. Gastrointestinal: no nausea, no vomiting, no diarrhea, no constipation, no blood in stool, no change in bowel habits, no abdominal pain, no hepatitis. Genitourinary: no kidney stones, no urine infection, no dysuria. Musculoskeletal: no pain, no weakness. Skin: no changing moles, no rash, no skin lumps. Neurologic: no seizures, no epilepsy, no headache. Psychiatric: no emotional or psychiatric problem. Heme/Lymph: no bleeding problems, no anemia, no blood clots, no transfusions. Allergy/Immunologic: no swollen lymph nodes/glands, no IV drug abuse. Other: Additional ROS info: Except as noted in the above Review of Systems and in the History of Present Illness, all other systems have been reviewed and are negative or noncontributory. Physical Exam Vitals & Measurements HR: 87(Peripheral) RR: 16 BP: 131/91 HT: 60 in HT: 152.4 cm WT: 90.7 kg WT: 199.54 lb BMI: 39.05 HEENT: normal conjunctiva, sclera clear, no scleral icterus, EOM intact, PERRLA, oral mucosa moist without lesions. Neck: trachea midline, no mass, symmetric, no thyromegaly or nodules, no adenopathy Respiratory: lungs CTA, respirations non labored. Cardiovascular: regular rate and rhythm, no murmur, no pedal edema or varicosities. Gastrointestinal: obese, soft, non distended, no tenderness, no masses, no palpable hernias, diastasis recti no, no hepatosplenomegaly; normal bs Lymphatic: no cervical adenopathy, no supraclavicular adenopathy. Musculoskeletal: normal gait, digits and nails without infection, nodes, cyanosis, clubbing. Skin: no rashes, no lesions, no ulcers, no subcutaneous nodules, induration. Psychiatric/Neuro: oriented to time, place, person, judgement normal, affect appropriate for age, insight intact, no focal deficits. Tests: labs reviewed, , review of old records completed , Discussed surgical options, risks, and possible complications with patient. Assessment/Plan 1. Rectal bleeding (K62.5: Hemorrhage of anus and rectum) plan colonoscopy under anesthesia, informed consent obtained. 2. Positive fecal occult blood test (R19.5: Other fecal abnormalities) see # 1 Follow-up No qualifying data available Problem List/Past Medical History Ongoing Anxiety BMI 39.0-39.9,adult Depression Hypertension Obesity due to excess calories Positive fecal occult blood test Rectal bleeding Smoker Historical No qualifying data Procedure/Surgical History Cone biopsy, EGD - esophagogastroduodenoscopy, Lumpectomy of left breast, Tonsillectomy. Medications Pepcid 20 mg Tab, 20 mg= 1 tab(s), Oral, Daily Allergies Keflex (Hives) penicillin (Hives) Social History Alcohol Current, Beer, Wine, Liquor, 1-2 times per week, 03/21/2024 Substance Abuse - Denies Substance Abuse, 03/21/2024 Tobacco Smoker, current status unknown Tobacco Use:. Cigarettes, 1 per day. Started age 10.0 Years. Stopped age 37 Years., 03/21/2024 Family History Diabetes mellitus type 2: Father. Primary malignant neoplasm of female breast: Aunt. [facility] Comment on above: Result Comment: Elec tronically Signed By: ARMAND STUBBS, Pee Cooper\Date and Time Signed: 03/21/24 12:37 EDT Evaluation + Plan note Note Date & Type Note Facility Evaluation + Plan note No data available for this section [facility] [place] [facility] Discharge instructions Note Date & Type Note Facility Hospital Discharge instructions No data available for this section [facility] [place] Progress note Note Date & Type Note Facility Progress note No data available for this section [facility] [place] Reason for Referral Status Reason Specialty Diagnoses / Procedures Referred By Contact Referred To Contact Pending Review Radiology Diagnoses Breast lump Procedures ESTRELLA DIGITAL DIAGNOSTIC W OR WO CAD BILATERAL Lane Meza MD [address] [place] [phone] [facility] [address] [place] [address] Status Reason Specialty Diagnoses / Procedures Referre d By Contact Referred To Contact Closed Radiology Diagnoses Non-intractable vomiting with nausea, unspecified vomiting type Procedures FL UGCuate Cervantes MD [address] [place] [phone] [facility] [address] [place] [place] [address] Status Reason Specialty Diagnoses / Procedures Referre d By Contact Referred To Contact Closed Radiology Diagnoses RUQ abdominal pain Procedures US GALLBLADDER RUQ Cuate Mallory MD [address] [place] [address] [facility] [address] [place] [address] Assessments Diagnosis Breast lump Lump or mass in breast Diagnosis Breast lump Lump or mass in breast Diagnosis GERD (gastroesophageal reflux disease) Esophageal reflux Diagnosis Non-intractable vomiting with nausea, unspecified vomiting type Diagnosis RUQ abdominal pain Abdominal pain, right upper quadrant Diagnosis Well woman exam with routine gynecological exam Routine gynecological examination Screening for HPV (human papillomavirus) Special screening examination for human papillomavirus (HPV) Diagnosis Suspected COVID-19 virus infection Diagnosis Gastroesophageal reflux disease without esophagitis Esophageal reflux Essential hypertension Unspecified essential hypertension Advance Directives No Advanced Directives Records FoundDocuments on File Type Date Recorded Patient Perinatal Director Expl anation Advance Directives and Living Will Power of Court Assistant Latest Code Status on File Code Status Date Activated Date Inactivated Comments Full Code 03/22/2020 10:26 AM Full Code 03/22/2020 7:33 AM 03/22/2020 10:26 AM Latest Code Status on File Code Status Date Activated Date Inactivated Comments Full Code 03/22/2020 10:26 AM 03/22/2020 1:20 PM Documents on File Type Date Recorded Patient Perinatal Director Expl anation ACP-Advance Directive ACP-Power of Court Assistant Latest Code Status on File Code Status Date Activated Date Inactivated Comments Full Code 03/22/2020 10:26 AM 03/22/2020 1:20 PM Full Code 03/22/2020 7:33 AM 03/22/2020 10:26 AM Documents on File Type Date Recorded Patient Perinatal Director Expl anation ACP-Advance Directive ACP-Power of Court Assistant Documents on File Type Date Recorded Patient Perinatal Director Expl anation Advance Directives and Living Will Power of Court Assistant Discharge Instructions * Instructions* Neena Jalloh RN - 03/22/2020 Upper GI Endoscopy: What to Expect at Home Your Recovery You had an upper GI endoscopy. Your doctor used a thin, lighted tube that bends to look at the inside of your esophagus, your stomach, and the first part of the small intestine, called the duodenum. After you have an endoscopy, you will stay at the hospital or clinic for 1 to 2 hours. This will allow the medicine to wear off. You will be able to go home after your doctor or nurse checks to make sure that you're not having any problems. You may have to stay overnight if you had treatment during the test. You may have a sore throat fora day or two after the test. This care sheet gives you a general idea about what to expect after the test. How can you care for yourself at home? Activity Rest as much as you need to after you go home. You should be able to go back to your usual activities the day after the test. Diet Follow your doctor's directions for eating after the test. Drink plenty of fluids (unless your doctor has told you not to). Medications If you have a sore throat the day after the test, use an [id number] spray to numb your throat. Follow-up care is a bullock part of your treatment and safety. Be sure to make and go to all appointments, and call your doctor if you are having problems. It's also a good idea to know your test resultsand keep a list of the medicines you take. When should you call for help? [id number] anytime you think you may need emergency care. For example, call if: You passed out (loses consciousness). You have trouble breathing. You pass maroon or bloody stools. Call your doctor now or seek immediate medical care if: You have pain that does not get better after your take pain medicine. You have new or worse belly pain. You have blood in your stools. You are sick to your stomach and cannot keep fluids down. You have a fever. You cannot pass stools or gas. Watch closely for changes in your health, and be sure to contact your doctor if: Your throat still hurts after a day or two. You do not get better as expected. Where can you learn more? Go to [email or web address] and sign in to your [employer] account. Enter J454 in the Search Health Information box to learn more about Upper GI Endoscopy: What to Expect at Home. If you do not have an account, please click on the Sign Up Now link. Current as of: March 31, 2019 Content Version: 12.5 8848-3352 [employer]. Care instructions adapted under license by [employer]. If you have questions about a medical condition or this instruction, always ask your healthcare professional. [employer] disclaims any warranty or liability for your use of this information. documented in this encounter History of Present Illness * Neena Jalloh RN - 03/22/2020 11:14 AM EDT Discharge Criteria Outpatients must meet criteria 1 through 7. Up to restroom, void sufficient amount. Yes 1. Minimum 30 minutes after last dose of sedative medication, minimum 120 minutes after last dose of reversal agent. Yes 2. Systolic BP stable within 20 mmHg for 30 minutes & systolic BP between 90 & 180 or within 10 mmHg of baseline. Yes 3. Pulse between 60 and 100 or within 10 bpm of baseline. Yes 4. Spontaneous respiratory rate >/= 10 per minute. Yes 5. SaO2 >/= 95 or >/= baseline. Yes 6. Able to cough and swallow or return to baseline function. Yes 7. Alert and oriented or return to baseline mental status. Yes 8. Demonstrates controlled, coordinated movements, ambulates with steady gait, or return to baseline activity function. Yes 9. Minimal or no pain or nausea, or at a level tolerable and acceptable to patient. Yes 10. Takes and retains oral fluids as allowed. Yes 11. Procedural / perioperative site stable. Minimal or no bleeding. Yes 12. If GI endoscopy procedure, minimal or no abdominal distention or passing flatus. Yes 13. Written discharge instructions and emergency telephone number provided. Yes 14. Accompanied by a responsible adult. Yes Adult patient discharged from facility without responsible person meets above criteria plus the following: a) remains awake without stimulus for 30 minutes b) oriented appropriate for age c) all vital signs stable d) no significant risk of losing protective reflexes e) able to maintain pre-procedure mobility without assistance f) no nausea or dizziness g) transportation arrangements that do not require patient to operate motor Vehicle. Yes documented in this encounter* Christina Whitley RN - 03/22/2020 7:18 AM EDT Results called to patient. documented in this encounter Summary Purpose Family History No Family History Records Found No data available for this section No Family History Records Found Additional Source Comments Reason for Visit (unrecogniz ed section and content) Status Reason Specialty Diagnoses / Procedures Referred By Contact Referred To Contact Pending Review Radiology Diagnoses Breast lump Procedures [facility] DIGITAL DIAGNOSTIC W OR WO CAD BILATERAL Lane Meza MD [address] [place] [phone] [facility] [address] [place] [phone] Status Reason Specialty Diagnoses / Procedures Referre d By Contact Referred To Contact Closed Radiology Diagnoses Breast lump Procedures ESTRELLA DIGITAL DIAGNOSTIC W OR WO CAD LEFT Lane Meza MD [address] [place] [phone] Status Reason Specialty Diagnoses / Procedures Re ferred By Contact Referred To Contact Diagnoses Heartburn Epigastric pain heartburn epigastric pain Procedures MD OFFICE/OUTPT VISIT,PROCEDURE ONLY MD ESOPHAGOGASTRODUODENOSCOPY TRANSORAL DIAGNOSTIC EGD ESOPHAGOGASTRODUODENOSCOPY Cuate Mallory MD [address] [place] [address] [facility] Status Reason Specialty Diagnoses / Procedures Referre d By Contact Referred To Contact Closed Radiology Diagnoses Non-intractable vomiting with nausea, unspecified vomiting type Procedures FL UGI Cuate Mallory MD [address] [place] [address] [address] [place] [address] [facility] [address] [place] [phone] Status Reason Specialty Diagnoses / Procedures Referre d By Contact Referred To Contact Closed Radiology Diagnoses RUQ abdominal pain Procedures US GALLBLADDER RUQ Cuate Mallory MD [address] [place] [address] [address] [place] [phone] [facility] [address] [place] [address] INFORMATION SOURCE (unrecogn ized section and content) DATE CREATED AUTHOR 10/26/2022 Jagruti rodriguez DATE CREATED AUTHOR AUTHOR'S ORGANIZ ATION 03/23/2024 Jeremi Neal [facility] Patient Care team informyair n (unrecognized section and content) Personnel Name: Reynold Pittman MD Address: Address: [address] [place] [address] FOR RECORDS PERTAINING TO PATIENTS WHO ARE OR HAVE BEEN ENROLLED IN A CHEMICAL DEPENDENCY/SUBSTANCEABUSE PROGRAM, SOME INFORMATION MAY BE OMITTED. This clinical summary was aggregated from multiple sources. Caution should be exercised in using it in the provision of clinical care. This summary normalizes information from multiple sources, and as a consequence, information in this document may materially change the coding, format and clinical context of patient data. In addition, data may be omitted in some cases. CLINICAL DECISIONS SHOULD BE BASED ON THE PRIMARY CLINICAL RECORDS. [employer] provides no warranty or guarantee of the accuracy or completeness of information in this document.
== END 2024-03-31 13:01 | disposition home or self-care (01) ==
LOC: PST 04-01 07:23
PROVIDERS: PCP Family Medicine; Visit Provider Surgery
DX: Z01.818 Encounter for other preprocedural examination (principal); R19.5 Other fecal abnormalities; K62.5 Hemorrhage of anus and rectum

== ENCOUNTER 2024-04-09 07:32 | Day surgery (SDC) | payer OTHER, SELFPAY ==
--- NOTE | 2024-04-09 | OP_ITS ---
OPERATION DATE: 04/09/2024 PREOPERATIVE DIAGNOSIS: Rectal bleeding, guaiac positive stool. POSTOPERATIVE DIAGNOSIS: A 1.5 cm pedunculated rectal polyp. PROCEDURE: Colonoscopy to cecum with hot snare polypectomy x1 for rectal polyp. SURGEON: Pee Huff M.D. ANESTHESIA: Monitored anesthesia care. ESTIMATED BLOOD LOSS: Zero. INDICATIONS AND CONSENT: Patient is a 44-year-old female with history of intermittent rectal bleeding and guaiac positive stool. Indications, risks, benefits, alternatives of proceeding with colonoscopy were explained extensively to the patient, including the risks of bleeding, colon perforation or anesthetic complications. All of her questions were answered. Informed consent was obtained. PROCEDURE: Patient brought to the operating room, placed in the left lateral decubitus position. Monitored anesthesia care was provided. Rectal exam was performed which showed no masses or blood. The scope was inserted into the anal canal. Under direct visualization was advanced. It was advanced to the cecum where cecal marking were clearly identified. There was noted to be a good prep. Upon withdrawal of the scope, mucosal surfaces were carefully examined. There were no mass lesions or inflammatory changes. No significant diverticulosis. At the top of the rectum, there was noted to be a pedunculated 1.5 cm oblong polyp without active bleeding or inflammation. It was removed with hot snare with good hemostasis. The scope was retroflexed in the anal canal. There was no significant hemorrhoidal disease. Scope was then withdrawn. Patient tolerated procedure well, was sent to recovery room in good condition. Follow up colonoscopy likely in 3-5 years, but will depend on the pathology results. CC: Reynold Pittman M.D. CESAR
--- OUTSIDE RECORDS SUMMARY | 2024-04-09 07:36 | XMS_ITS | CCD ---
Author Organization [facility] Care Team Providers Care Vulnerability Researcher Name Role Phone Lane Meza Primary Care Provider LANE MEZA Primary Care Unavailable PAYAM BAR Attending Unavailable Reynold Pittman Primary Care Physician [phone] Pee ACUNA Attending Unavailable Reynold Pittman Referring Unavailable Allergies Allergy Classification Reported Allergen(s) Allergy Type Date of Onset Reaction(s) Facility (12 sources) Cephalexin; Translations: [Cephalexin] Drug Allergy 3 Anaphylaxis, [place] (disorder) [place] (11 sources) Penicillins Propensity to adverse reactions to drug 3 Anaphylaxis, Hives [place] (2 sources) Penicillin; Translations: [penicillin] Drug Allergy Weal (disorder) [facility] (1 source) Cephalexin; Translations: [Keflex] Drug Allergy [facility] Repository Medications Current Medications Medication Drug [...] 0 Start Date: 03/21/24 Status: Ordered Famotidine ([facility] ID PO) Take by mouth 0 Active [...] for choosing us for your care. Normal [facility] Basic Metabolic Profon 10-24 Anion gap [Moles/Vol] 9 mmol/L Normal - [facility] Comment on above: Performed By: #### B MP, LIP, HCG, LIVP, CDP #### [facility] [address] [place] [address] Document Analyst: Raymond Reyna MD BUN/CRE Ratio 19 Normal - [facility] Comment on above: Performed By: #### B MP, LIP, HCG, LIVP, CDP #### [facility] [address] [place] [address] Document Analyst: Raymond Reyna MD Calcium [Mass/Vol] 9.1 mg/dL Normal 8.6-10.4 [facility] Comment on above: Performed By: #### B MP, LIP, HCG, LIVP, CDP #### [facility] [address] [place], [place] [id number] Document Analyst: Raymond Reyna MD Chloride [Moles/Vol] 102 mmol/L Normal 98-107 [facility] Comment on above: Performed By: #### B MP, LIP, HCG, LIVP, CDP #### [facility] [address] [place], [place] [id number] Document Analyst: Raymond Reyna MD CO2 [Moles/Vol] 24 mmol/L Normal 20-31 [facility] Comment on above: Performed By: #### B MP, LIP, HCG, LIVP, CDP #### [facility] [address] [place] [address] Document Analyst: Raymond Reyna MD Creatinine [Mass/Vol] 0.93 mg/dL High 0.50-0.90 [facility] Comment on above: Performed By: #### B MP, LIP, HCG, LIVP, CDP #### [facility] [address] [place] [id number] Document Analyst: Raymond Reyna MD GFR/1.73 sq M.predicted among non-blacks MDRD (S/P/Bld) [Vol rate/Area] mL/min/{1.73_m2} Normal >60 [facility] Comment on above: Result Comment: These results [...] B MP, LIP, HCG, LIVP, CDP #### [facility] [address] [place], [place] [id number] Document Analyst: Raymond Reyna MD Glucose [Mass/Vol] 106 mg/dL High 70-99 [facility] Comment on above: Performed By: #### B MP, LIP, HCG, LIVP, CDP #### [facility] [address] [place], [place] [id number] Document Analyst: Raymond Reyna MD Potassium [Moles/Vol] 3.9 mmol/L Normal 3.7-5.3 [facility] Comment on above: Performed By: #### B MP, LIP, HCG, LIVP, CDP #### [facility] [address] [place] [address] Document Analyst: Raymond Reyna MD Sodium [Moles/Vol] 135 mmol/L Normal 135-144 [facility] Comment on above: Performed By: #### B MP, LIP, HCG, LIVP, CDP #### [facility] [address] [place] [address] Document Analyst: Raymond Reyna MD Urea nitrogen [Mass/Vol] 18 mg/dL Normal 6-20 [facility] Comment on above: Performed By: #### B MP, LIP, HCG, LIVP, CDP #### [facility] [address] [place] [address] Document Analyst: Raymond Reyna MD CBC with Diffon 10-24-2022 Abs. Basophil 0.10 k/uL Normal 0.0-0.2 [facility] Comment on above: Performed By: #### B MP, LIP, HCG, LIVP, CDP #### [facility] [address] [place] [address] Document Analyst: Raymond Reyna MD Abs.Neutrophil (Seg) 6.90 k/uL Normal 2.5-7.0 [facility] Comment on above: Performed By: #### B MP, LIP, HCG, LIVP, CDP #### [facility] [address] [place] [address] Document Analyst: Raymond Reyna MD Auto Diff Performed YES Normal [facility] Comment on above: Performed By: #### B MP, LIP, HCG, LIVP, CDP #### [facility] [address] [place], [place] [id number] Document Analyst: Raymond Reyna MD Basophils/100 WBC (Bld) 1 % Normal 0-2 [facility] Comment on above: Performed By: #### B MP, LIP, HCG, LIVP, CDP #### [facility] [address] [place] [address] Document Analyst: Raymond Reyna MD Eosinophils (Bld) [#/Vol] 0.30 10*3/uL Normal 0.0-0.4 [facility] Comment on above: Performed By: #### B MP, LIP, HCG, LIVP, CDP #### [facility] [address] [place] [address] Document Analyst: Raymond Reyna MD Eosinophils/100 WBC (Bld) 3 % Normal 0-5 [facility] Comment on above: Performed By: #### B MP, LIP, HCG, LIVP, CDP #### [facility] [address] [place] [address] Document Analyst: Raymond Reyna MD Erythrocyte distribution width (RBC) [Ratio] 13.0 % Normal 12.1-15.2 [facility] Comment on above: Performed By: #### B MP, LIP, HCG, LIVP, CDP #### [facility] [address] [place] [address] Document Analyst: Raymond Reyna MD Hematocrit (Bld) [Volume fraction] 39.6 % Normal 36-46 [facility] Comment on above: Performed By: #### B MP, LIP, HCG, LIVP, CDP #### [facility] [address] [place] [address] Document Analyst: aRymond Reyna MD Hemoglobin (Bld) [Mass/Vol] 13.4 g/dL Normal 12.0-16.0 [facility] Comment on above: Performed By: #### B MP, LIP, HCG, LIVP, CDP #### [facility] [address] [place] [address] Document Analyst: Raymond Reyna MD Lymphocytes (Bld) [#/Vol] 2.00 10*3/uL Normal 1.0-4.8 [facility] Comment on above: Performed By: #### B MP, LIP, HCG, LIVP, CDP #### [facility] [address] [place] [address] Document Analyst: Raymond Reyna MD Lymphocytes/100 WBC (Bld) 21 % Normal 15-40 [facility] Comment on above: Performed By: #### B MP, LIP, HCG, LIVP, CDP #### [facility] [address] [place] [id number] Document Analyst: Raymond Reyna MD MCH (RBC) [Entitic mass] 28.9 pg Normal 26-34 [facility] Comment on above: Performed By: #### B MP, LIP, HCG, LIVP, CDP #### [facility] [address] [place] [id number] Document Analyst: Raymond Reyna MD MCHC (RBC) [Mass/Vol] 33.8 g/dL Normal 31-37 [facility] Comment on above: Performed By: #### B MP, LIP, HCG, LIVP, CDP #### [facility] [address] [place] [address] Document Analyst: Raymond Reyna MD MCV (RBC) [Entitic vol] 85.5 fL Normal 80-100 [facility] Comment on above: Performed By: #### B MP, LIP, HCG, LIVP, CDP #### [facility] [address] [place], [place] [id number] Document Analyst: Raymond Reyna MD Monocytes (Bld) [#/Vol] 0.50 10*3/uL Normal 0.0-1.0 [facility] Comment on above: Performed By: #### B MP, LIP, HCG, LIVP, CDP #### [facility] [address] [place] [address] (196) Document Analyst: Raymond Reyna MD Monocytes/100 WBC (Bld) 5 % Normal 4-8 [facility] Comment on above: Performed By: #### B MP, LIP, HCG, LIVP, CDP #### [facility] [address] [place] [address] Document Analyst: Raymond Reyna MD Neutrophil (Seg) 70 % Normal 47-75 [facility] Comment on above: Performed By: #### B MP, LIP, HCG, LIVP, CDP #### [facility] [address] [place] [address] Document Analyst: Raymond Reyna MD Platelets (Bld) [#/Vol] 319 10*3/uL Normal 140-450 [facility] Comment on above: Performed By: #### B MP, LIP, HCG, LIVP, CDP #### [facility] [address] [place] [address] (223) Document Analyst: Raymond Reyna MD RBC (Bld) [#/Vol] 4.63 10*6/uL Normal 4.0-5.2 [facility] Comment on above: Performed By: #### B MP, LIP, HCG, LIVP, CDP #### [facility] [address] [place] [address] (548) Document Analyst: Raymond Reyna MD WBC (Bld) [#/Vol] 9.8 10*3/uL Normal 3.5-11.0 [facility] Comment on above: Performed By: #### B MP, LIP, HCG, LIVP, CDP #### [facility] [address] [place], [place] [id number] Document Analyst: Raymond Reyna MD HCG Screen, Bloodon 10-25-19 23 HCG Screen, Blood Negative Normal NEG [facility] Comment on above: Result Comment: Spec imens with hCG levels near the threshold of the test (25 mIU/mL) may give a negative or indeterminate result. In such cases, another test should be performed with a new specimen in 48-72 hours. If early is suspected clinically in this setting, correlation with quantitative serum b-hCG level is suggested. [facility] has confirmed the use of plasma for this test. This has not been cleared or approved by the U.S. Food and Drug Administration. The FDA has determined that such clearance is not necessary. Performed By: #### B MP, LIP, HCG, LIVP, CDP #### [facility] [address] [place], [place] [id number] Document Analyst: Raymond Reyna MD Lipaseon 10-24-2022 Lipase [Catalytic activity/Vol] 36 U/L Normal 13-60 [facility] Comment on above: Performed By: #### B MP, LIP, HCG, LIVP, CDP #### [facility] [address] [place] [address] Document Analyst: Raymond Reyna MD Liver Profileon 6 Albumin [Mass/Vol] 4.2 g/dL Normal 3.5-5.2 [facility] Comment on above: Performed By: #### B MP, LIP, HCG, LIVP, CDP #### [facility] [address] [place] [address] Document Analyst: Raymond Reyna MD Alkaline Phos 77 U/L Normal 35-104 [facility] Comment on above: Performed By: #### B MP, LIP, HCG, LIVP, CDP #### [facility] [address] [place] [address] Document Analyst: Raymond Reyna MD ALT [Catalytic activity/Vol] 18 U/L Normal 5-33 [facility] Comment on above: Performed By: #### B MP, LIP, HCG, LIVP, CDP #### [facility] [address] [place] [address] Document Analyst: Raymond Reyna MD AST [Catalytic activity/Vol] 16 U/L Normal <32 [facility] Comment on above: Performed By: #### B MP, LIP, HCG, LIVP, CDP #### [facility] [address] [place] [address] Document Analyst: Raymond Reyna MD Bilirubin [Mass/Vol] 0.3 mg/dL Normal 0.3-1.2 [facility] Comment on above: Performed By: #### B MP, LIP, HCG, LIVP, CDP #### [facility] [address] [place] [address] Document Analyst: Raymond Reyna MD Bilirubin, Indirect Can not be calculated Normal 0.0-1 .0 [facility] Comment on above: Performed By: #### B MP, LIP, HCG, LIVP, CDP #### [facility] [address] [place] [address] Document Analyst: Raymond Reyna MD Bilirubin.indirect [Mass/Vol] mg/dL Normal <0.3 [facility] Comment on above: Performed By: #### B MP, LIP, HCG, LIVP, CDP #### [facility] [address] [place] [address] Document Analyst: Raymond Reyna MD Protein [Mass/Vol] 7.2 g/dL Normal 6.4-8.3 [facility] Comment on above: Performed By: #### B MP, LIP, HCG, LIVP, CDP #### [facility] [address] [place] [address] Document Analyst: Raymond Reyna MD Urinalysis, Routineon 2022 Bilirubin, SemiQt,Ur Negative Normal NEG [facility] Comment on above: Performed By: #### U A #### [facility] [address] [facility] [place] [id number] Document Analyst: Raymond Reyna MD Blood, Urine Negative Normal NEG [facility] Comment on above: Performed By: #### U A #### [facility] [address] [facility] [place] [id number] Document Analyst: Raymond Reyna MD Clarity (U) Clear Normal CLEAR [facility] Comment on above: Performed By: #### U A #### [facility] [address] [facility] [place] [id number] Document Analyst: Raymond Reyna MD Color (U) Yellow Normal YEL [facility] Comment on above: Performed By: #### U A #### [facility] [address] [facility] [place] [id number] Document Analyst: Raymond Reyna MD Comment Normal [facility] Comment on above: Performed By: #### U A #### [facility] [address] [facility] [place] [id number] Document Analyst: Raymond Reyna MD Glucose Ql (U) Negative Normal NEG [facility] Comment on above: Performed By: #### U A #### [facility] [address] [facility] [place] [id number] Document Analyst: Raymond Reyna MD Ketones Ql (U) Negative Normal NEG [facility] Comment on above: Performed By: #### U A #### [facility] [address] [facility] [place] [id number] Document Analyst: Raymond Reyna MD Leukocyte esterase Test strip Ql (U) Negative Normal NEG [facility] Comment on above: Performed By: #### U A #### [facility] [address] [place], [place] [id number] Document Analyst: Raymond Reyna MD Nitrite,Ur Negative Normal NEG [facility] Comment on above: Performed By: #### U A #### [facility] [address] [place], [place] [id number] Document Analyst: Raymond Reyna MD PH,Ur 5.0 Normal 5.0-8.0 [facility] Comment on above: Performed By: #### U A #### [facility] [address] [place], [place] [id number] Document Analyst: Raymond Reyna MD Protein Ql (U) Negative Normal NEG [facility] Comment on above: Performed By: #### U A #### [facility] [address] [place], [place] [id number] Document Analyst: Raymond Reyna MD Spec. [place],Ur 1.010 Normal 1.005-1.030 [facility] Comment on above: Performed By: #### U A #### [facility] [address] [place], [place] [id number] Document Analyst: Raymond Reyna MD Urobilinogen,Ur Normal Normal NORM [facility] Comment on above: Performed By: #### U A #### [facility] [address] [place], [place] [id number] Document Analyst: Raymond Reyna MD COVID-19on 04-13-2020 SARS-CoV-2 [place] SARS-CoV-2, PCR [place] SARS-CoV-2, Rapid Not Detected Not Detected [place] Comment on above: Rapid NAAT: The [...] management decisions. Fact sheet for Healthcare Providers: https://www.fda.gov/media/794989/download Fact sheet for Patients: https://www.fda.gov/media/930913/download Methodology: Isothermal Nucleic Acid Amplification Source .THROAT [place] FL UGIon 04-13-2020 Gastroesophageal reflux. [place] EXAMINATION: [place] UGI HISTORY: Chronic reflux [...] and proximal small bowel loops are normal. [place] Imer, pn Incoming Radiant Results From [facility] - 04/13/2020 2:13 PM EDT EXAMINATION: FL [...] bowel loops are normal. IMPRESSION: Gastroesophageal reflux. [place] US GALLBLADDER RUQon 020 Normal ultrasound of the right upper quadrant [place] Ultrasound of the right upper quadrant. [...] is noted in the right upper quadrant. [place] I[place], Mhpn Incoming Radiant Results From [facility] - 04/13/2020 11:55 AM EDT Ultrasound of [...] Normal ultrasound of the right upper quadrant [place] COVID-19on 03-22-2020 SARS-CoV-2 [place] SARS-CoV-2, PCR [place] SARS-CoV-2, Rapid Not Detected Not Detected [place] Comment on above: Rapid NAAT: The [...] management decisions. Fact sheet for Healthcare Providers: https://www.fda.gov/media/141664/download Fact sheet for Patients: https://www.fda.gov/media/053188/download Methodology: Isothermal Nucleic Acid Amplification Source .THROAT [place] Urine pregnancyon 03-22-2020 Beta HCG ( test) Ql (U) Negative NEGATIVE [place] Otheron 03-04-2020 BI-RADS 2 - Benign, no evidence of malignancy. Normal interval followup is recommended in 12 months. OVERALL ASSESSMENT- BENIGN A letter of notification will be sent to the patient regarding the results. The findings were discussed with the patient. She can return to screening mammography. [place] EXAM: US BREAST LIMITED LEFT, ESTRELLA [...] which could obscure small masses. No change. [place] I[place], Mhpn Incoming Radiant Results From [facility] - 03/04/2020 4:10 PM EDT EXAM: US [...] patient. She can return to screening mammography. [place] Basic Metabolic Panelon 02-17 Anion gap [Moles/Vol] 13 mmol/L 9 - 17 mmol/L [place] Bun/Cre Ratio 14 [place] Calcium [Mass/Vol] 9.9 mg/dL 8.6 - 10. 4 mg/dL [place] Chloride [Moles/Vol] 103 mmol/L 98 - 107 mmol/L [place] CO2 [Moles/Vol] 24 mmol/L 20 - 31 mmol/L [place] Creatinine [Mass/Vol] 1.18 mg/dL High 0.5 - 0.9 mg/dL [place] GFR >60 >60 mL/min [place] GFR Non- 51 mL/min Low >60 [place] GFR/1.73 sq M predicted among non-blacks MDRD (S/P/Bld) [Vol rate/Area] [place] Comment on above: Average GFR for 30-3 9 years old: 107 mL/min/1.73sq m Chronic Kidney Disease: <60 mL/min/1.73sq m Kidney failure: <15 mL/min/1.73sq m eGFR calculated using average adult body mass. Additional eGFR calculator available at: http://www.[employer]/multiple_crcl_2012.htm GFR/1.73 sq M predicted among non-blacks MDRD (S/P/Bld) [Vol rate/Area] NOT REPORTED [place] Glucose [Mass/Vol] 98 mg/dL 70 - 99 mg/dL [place] Interpretation and review of laboratory results Abnormal [place] Potassium [Moles/Vol] 4.1 mmol/L 3.7 - 5.3 mmol/L [place] Sodium [Moles/Vol] 140 mmol/L 135 - 144 mmol/L [place] Urea nitrogen [Mass/Vol] 17 mg/dL 6 - 20 mg/dL [place] CBC Auto Differentialon 02-17 Basophils (Bld) [#/Vol] 0.00 10*3/uL [place] Basophils/100 WBC (Bld) 0 % 0 - 2 % [place] Differential Type YES [place] Eosinophils (Bld) [#/Vol] 0.20 10*3/uL [place] Eosinophils/100 WBC (Bld) 2 % 0 - 5 % [place] Erythrocyte distribution width (RBC) [Ratio] 12.9 % 12.1 - 15.2 % [place] Hematocrit (Bld) [Volume fraction] 40.0 % 36 - 46 % [place] Hemoglobin (Bld) [Mass/Vol] 13.8 g/dL 12 - 16 g/dL [place] Lymphocytes (Bld) [#/Vol] 2.20 10*3/uL [place] Lymphocytes/100 WBC (Bld) 27 % 15 - 40 % [place] MCH (RBC) [Entitic mass] 30.2 pg 26 - 34 pg [place] MCHC (RBC) [Mass/Vol] 34.6 g/dL 31 - 37 g/dL [place] MCV (RBC) [Entitic vol] 87.2 fL 80 - 100 fL [place] Monocytes (Bld) [#/Vol] 0.60 10*3/uL [place] Monocytes/100 WBC (Bld) 8 % 4 - 8 % [place] Platelet mean volume (Bld) [Entitic vol] NOT REPORTED 6 - 12 fL [place] Platelets (Bld) [#/Vol] NOT REPORTED [place] Platelets (Bld) [#/Vol] 322 10*3/uL [place] RBC (Bld) [#/Vol] 4.59 10*6/uL 4 - 5.2 m/uL [place] RBC morphology finding Nom (Bld) NOT REPORTED [place] Segmented neutrophils/100 WBC (Bld) 63 % 47 - 75 % [place] Segs Absolute 5.10 [place] WBC (Bld) [#/Vol] 8.1 10*3/uL [place] WBC (Bld) [#/Vol] NOT REPORTED per 100 WBC [place] WBC Morphology NOT REPORTED [place] Otheron 03-01-2020 Immature granulocytes (Bld) [#/Vol] NOT REPORTED 0 % [place] TSHon 03-01-2020 TSH Qn 1.19 m[IU]/L [place] Vital Signs Date Time Vital Sign Value Performing Clinician Wendi kelley 03-21-2024 08:49-0400 Blood Pressure Location Pee NILL [facility] 03-21-2024 08:49-0400 Diastolic blood pressure 91 mm[Hg] Pee NILL [facility] 03-21-2024 08:49-0400 Heart rate 87 /min Pee NILL [facility] 03-21-2024 08:49-0400 Respiratory rate 16 /min Pee NILL [facility] 03-21-2024 08:49-0400 Systolic blood pressure 131 mm[Hg] Pee NILL [facility] 03-22-2020 10:58-0400 BP Diastolic 85 mm[Hg] [facility] [place] 03-22-2020 10:58-0400 BP Systolic 139 mm[Hg] [facility] , [place] 03-22-2020 10:58-0400 Pulse (Heart Rate) 78 /min [facility] [place] 03-22-2020 10:58-0400 Pulse Oximetry 100 % [facility] [place] 03-22-2020 10:58-0400 Respiratory Rate 18 /min [facility] [place] 03-22-2020 10:26-0400 Body Temperature 97.7 [degF] [facility] [place] 03-22-2020 07:33-0400 BMI (Body Mass Index) 37.11 kg/m2 Cuategreg Mallory [facility], [place] 03-22-2020 07:33-0400 Body weight 86.18 kg [facility] [place] 03-22-2020 07:33-[address] [facility] [place] , [place] Encounters Encounter Date Encounter Type Care Provider Facility Start: 03-21-2024 End: 03-21-2024 ambulatory Pee ACUNA Facility:DAV Reeder Start: 03-21-2024 End: 03-21-2024 Patient encounter procedure Pee ACUNA [facility] [place] Start: 03-18-2024 ambulatory Pee ACUNA Facility:Jennifer Reeder Start: 03-03-2024 ambulatory Pee ACUNA Facility:Jennifer Daniel Start: 10-24-2022 End: 10-24-2022 Emergency department patient visit [facility] Start: 10-25-2020 End: 10-25-2020 Subsequent hospital visit by physician [facility] Ryan Pat Screening Schedule [facility] PRE ADMIT Comment on above: Arrived Start: 06-28-2020 End: 06-28-2020 Subsequent hospital visit by physician Lane delilah [facility] Laboratory Comment on above: Suspected COVID-19 v irus infection Start: 05-05-2020 End: 05-05-2020 Subsequent hospital visit by physician [facility] Laboratory Comment on above: Well woman exam with routine gynecological exam; Screening for HPV (human papillomavirus) Start: 04-13-2020 End: 04-15-2020 Subsequent hospital visit by physician [facility] Radiologist [facility] Radiology Comment on above: Non-intractable vomi ting with nausea, unspecified vomiting type RUQ abdominal pain Start: 04-13-2020 End: 04-13-2020 Subsequent hospital visit by physician [facility] Ryan Pat Screening Schedule [facility] PRE ADMIT Comment on above: Arrived Start: 03-22-2020 End: 03-22-2020 Subsequent hospital visit by physician Cuate Mallory Work Phone: [facility] Start: 03-22-2020 End: 03-22-2020 Subsequent hospital visit by physician [facility] Ryan Pat Screening Schedule [facility] PRE ADMIT Comment on above: Arrived Start: 03-04-2020 End: 03-06-2020 Subsequent hospital visit by physician [facility] Radiologist [facility] Mammography Comment on above: Breast lump Start: [...] ant neoplasm of cervix Cervical cancer screen [facility], [place] Start: 05-11-2021 End: 05-11-2021 Office Visit 05/11/2021 Office Visit Obstetrics and Gynecology Tania Mcdaniels APRN - CNMely [address] [place] [address] [facility] Start: 03-01-2021 Creatinine measurement Creatinine mo nitoring [place] Start: 03-01-2021 DTaP/Tdap/Td vaccine (1 - Tdap) DTaP/Tdap/Td vaccine (1 - Tdap) [place] Comment on above: Postponed from 02/11 (Patient Refused) Start: 03-01-2021 HIV screening HIV screen [place] Comment on above: Postponed from 02/11 (Patient Refused) Start: 03-01-2021 Potassium monitoring Potassium monit oring [place] Start: 06-28-2020 End: 06-28-2020 Office Visit [facility] Start: 05-05-2020 End: 05-05-2020 Office Visit 05/05/2020 Office Visit Obstetrics and Gynecology Tania Mcdaniels APRN - CNMely [address] [place] [address] [facility] Start: 04-20-2020 Influenza vaccination Flu vaccine (# 1) [place] Start: 03-29-2020 End: 03-29-2020 Office Visit 03/29/[address] Lane Meza MD [address] [place] [id number] [facility] Start: 03-22-2020 Varicella vaccine (1 of 2 - 2-dose childhood series) Varicella vaccine (1 of 2 - 2-dose childhood series) [place] Comment on above: Postponed from 02/11 (Not Indicated) Start: 03-08-2020 End: 03-08-2020 Office Visit 03/08/2020 Office Visit General Surgery Cuate Mallory MD [address] [place] [address] [facility] [employer] - [place] Start: 03-04-2020 End: 03-04-2020 Appointment 03/04/2020 Appointment Radiology [facility] Ultrasound Start: 11-07-2016 Screening for malign ant neoplasm of cervix Cervical cancer screen [place] Start: 1983 Varicella vaccine (1 of 2 - 2-dose childhood series) Varicella vaccine (1 of 2 - 2-dose childhood series) [place] Start: 1982 Hepatitis C screening Hepatitis C sc reen [facility] Phone: End: 10-25-2020 COVID-19 COVID-19 Lab Routine Once for 1 Occurrences starting 10/25/2020 until 10/25/2020 [facility] Phone: Comment on above: Once for 1 Occurrenc es starting 10/25/2020 until 10/25/2020 COVID-19 COVID-19 Lab Rou fredi 10/25/2020 10:35 AM [facility] [employer] Phone: End: 06-28-2020 COVID-19 Ambulatory COVID-19 Ambulatory Lab Routine Suspected COVID-19 virus infection 1 Occurrences starting 06/28/2020 until 06/28/2020 [place] Comment on above: 1 Occurrences starti ng 06/28/2020 until 06/28/2020 COVID-19 Ambulatory COVID-19 Amb ulatory Lab Routine Suspected COVID-19 virus infection 06/28/2020 11:14 AM EST [place] End: 05-05-2020 Cytopathology procedure, preparation of smear, genital source PAP SMEAR Lab Routine Well woman exam with routine gynecological exam Screening for HPV (human papillomavirus) 1 Occurrences starting 05/05/2020 until 05/05/2020 [place] Comment on above: 1 Occurrences starti ng 05/05/2020 until 05/05/2020 [facility] [facility] [place] Comment on above: Release Upon Orderin g for 1 Occurrences starting 03/22/2020 Oxygen therapy Initiate Oxygen Therapy Protocol Respiratory Care Routine Daily until discontinued starting 03/22/2020 [place] Comment on above: Daily until disconti nued starting 03/22/2020 Surgical Pathology Surgical Path ology Lab Routine Release Upon Ordering for 1 Occurrences starting 03/22/2020 [place] Comment on above: Release Upon Orderin g for 1 Occurrences starting 03/22/2020 Payers Date Payer Category Payer Unknown [id number] 2024 Private Health Insurance [id number] 2016 Private Health Insurance [employer] [id number] 2016-Present [phone] [address] [place] [address] [id number] 2016 Private Health Insurance [employer]GIN[employer] LOONA [id number] 2016-Present [phone] [address] [place] [address] [id number] 2014 Unknown [id number] 1982 Unknown [id number] 1982 Unknown [id number] Social History Date Type Detail Facility Start: 03-01-2020 End: 10-25-2020 Tobacco smoking status NHIS Former smoker [facility] [place] Start: 03-01-1995 End: 03-01-2017 History of tobacco use Current smoker [facility] [place] Start: 03-01-1995 End: 03-01-2017 History of tobacco use [facility] Start: 03-01-2020 End: 10-25-2020 Cigarettes smoked current (pack per day[facility] Start: 03-01-2020 End: 10-25-2020 Tobacco use and exposure Never used [facility] Start: 03-01-2020 End: 10-25-2020 Alcohol intake Current drinker of alcohol (finding) [place] Start: 04-16-2013 Alcohol Comment once a month Jagruti Vyas [place] Sex Assigned At [place] on file [place] Exposure to SARS-CoV -2 (event) Not sure [place] Sex Assigned At Female [facility] Functional Status Date Assessment Result Facility 03-21-2024 Functional Status N/A [facility] [place] Clinical Note 03-21-2024 Note Date & Type [...] Primary malignant neoplasm of female breast: Aunt. [facility] Comment on above: Result Comment: Elec tronically Signed By: ARMAND STUBBS, Pee Cooper\Date and Time Signed: 03/21/24 12:37 EDT Evaluation + Plan note Note Date & Type Note Facility Evaluation + Plan note No data available for this section [facility] Discharge instructions Note Date & Type Note Facility Hospital Discharge instructions No data available for this section [facility] [place] Progress note Note Date & Type Note Facility Progress note No data available for this section [facility] [place] Reason for Referral Status Reason Specialty Diagnoses / Procedures Referred By Contact Referred To Contact Pending Review Radiology Diagnoses Breast lump Procedures ESTRELLA [facility]IG[facility] DIAGNOSTIC W OR WO CAD BILATERAL Lane Meza MD [address] [place] [phone] [facility] [address] [place] [address] Status Reason Specialty Diagnoses / Procedures Referre d By Contact Referred To Contact Closed Radiology Diagnoses Non-intractable vomiting with nausea, unspecified vomiting type Procedures [place] UGCuate Cervantes MD [address] [place] [phone] [facility] [address] [place] [address] Status Reason Specialty Diagnoses / Procedures Referre d By Contact Referred To Contact Closed Radiology Diagnoses RUQ abdominal pain Procedures US GALLBLADDER RUQ Cuate Mallory MD [address] [place] [address] [facility] [address] [place] [address] Assessments Diagnosis Breast lump Lump or mass [...] FoundDocuments on File Type Date Recorded Patient Drop Forger Expl anation Advance Directives and Living Will Power of Glass Laminating Operator Latest Code Status on File Code Status Date Activated Date Inactivated Comments Full Code 03/22/2020 10:26 AM Full Code 03/22/2020 7:33 AM 03/22/2020 10:26 AM Latest Code Status on File Code Status Date Activated Date Inactivated Comments Full Code 03/22/2020 10:26 AM 03/22/2020 1:20 PM Documents on File Type Date Recorded Patient Drop Forger Expl anation ACP-Advance Directive ACP-Power of Glass Laminating Operator Latest Code Status on File Code Status Date Activated Date Inactivated Comments Full Code 03/22/2020 10:26 AM 03/22/2020 1:20 PM Full Code 03/22/2020 7:33 AM 03/22/2020 10:26 AM Documents on File Type Date Recorded Patient Drop Forger Expl anation ACP-Advance Directive ACP-Power of Glass Laminating Operator Documents on File Type Date Recorded Patient Drop Forger Expl anation Advance Directives and Living Will Power of Glass Laminating Operator Discharge Instructions * Instructions* Neena Jalloh RN [...] the day after the test, use an [id number] spray to numb your throat. Follow-up care is a bullock part of your treatment and safety. Be sure to make and go to all appointments, and call your doctor if you are having problems. It's also a good idea to know your test resultsand keep a list of the medicines you take. When should you call for help? [email or web address] anytime you think you may need emergency [...] Where can you learn more? Go to [email or web address] and sign in to your [employer] account. Enter J454 in the Search Health Information box to learn more about Upper GI Endoscopy: What to Expect at Home. If you do not have an account, please click on the Sign Up Now link. Current as of: March 31, 2019 Content Version: 12.5 0836-3544 [employer]. Care instructions adapted under license by [employer]. If you have questions about a medical condition or this instruction, always ask your healthcare professional. [employer] disclaims any warranty or liability for your [...] OR WO CAD BILATERAL Lane Meza MD [address] [place] [phone] [facility] [address] [place] [id number] Status Reason Specialty Diagnoses / Procedures Referre d By Contact Referred To Contact Closed Radiology Diagnoses Breast lump Procedures ESTRELLA DIGITAL DIAGNOSTIC W OR WO CAD LEFT Lane Meza MD [address] [place] [phone] Status Reason Specialty Diagnoses / Procedures Re ferred By Contact Referred To Contact Diagnoses Heartburn Epigastric pain heartburn epigastric pain Procedures [place] OFFICE/OUTPT VISIT,PROCEDURE ONLY [place] ESOPHAGOGASTRODUODENOSCOPY TRANSORAL DIAGNOSTIC EGD ESOPHAGOGASTRODUODENOSCOPY Cuate Mallory MD [address] [place] [address] [facility] Status Reason Specialty Diagnoses / Procedures Referre d By Contact Referred To Contact Closed Radiology Diagnoses Non-intractable vomiting with nausea, unspecified vomiting type Procedures FL UGI Cuate Mallory MD [address] [place] [address] [address] [place] [address] [facility] [address] [place] [phone] Status Reason Specialty Diagnoses / Procedures Referre d By Contact Referred To Contact Closed Radiology Diagnoses RUQ abdominal pain Procedures US GALLBLADDER RUQ Cuate Mallory MD [address] [place] [address] [address] [place] [id number] [facility] [address] [place] [address] INFORMATION SOURCE (unrecogn ized section and content) DATE CREATED AUTHOR 10/26/2022 Jagruti rodriguez DATE CREATED AUTHOR AUTHOR'S ORGANIZ ATION 03/23/2024 Jeremi Neal [facility] Patient Care team informyair n (unrecognized section and content) Personnel Name: Reynold Pittman MD Address: Address: [address] [place] [address] FOR RECORDS PERTAINING TO PATIENTS WHO ARE [...] BE BASED ON THE PRIMARY CLINICAL RECORDS. [employer] provides no warranty or guarantee of the accuracy or completeness of information in this document.
[2024-04-09 07:53] VITALS: BP 130/95; PULSE 91; TEMP 35.8; O2SAT 98; BMI 39.0
[2024-04-09 08:00] LABS: HCG Qualitative NEGATIVE (NEGATIVE); Internal Control Within Normal Limits
[2024-04-09 09:45] VITALS: BP 108/66; PULSE 74; TEMP 36.4; O2SAT 98
[2024-04-09 10:00] VITALS: BP 118/86; PULSE 74; O2SAT 100
[2024-04-09 10:15] VITALS: BP 137/103; PULSE 70; O2SAT 100
[2024-04-09] MEDS: LACTATED RINGER'S SOLUTION 1,000 ML 50 ML IV (10:20)
== END 2024-04-09 10:15 | disposition home or self-care (01) ==
PROVIDERS: PCP Family Medicine; Visit Provider Surgery
PROC: (CPT 00811; principal; 2024-04-09 09:05)
DX: R19.5 Other fecal abnormalities (principal); K62.5 Hemorrhage of anus and rectum; D12.8 Benign neoplasm of rectum; I10 Essential (primary) hypertension; F41.8 Other specified anxiety disorders; Z87.891 Personal history of nicotine dependence; K21.9 Gastro-esophageal reflux disease without esophagitis
CPT/HCPCS: 00811; 45385; 36415; 84703; 88305; J2704